=== PATIENT | male | born 1970 | race Hispanic/Latino ===

== ENCOUNTER 2021-04-05 05:50 | Emergency (ER) | payer OTHER ==
[~2021-04-05] VITALS: Ht 167.6 cm; Wt 81.6 kg
[2021-04-05] MEDS ORDERED: CEPHALEXIN 500 MG CAPSULE PO ONE (06:30)
[2021-04-05] MEDS ORDERED: LIDOCAINE HCL 1% 20 ML VIAL INJ ONE (06:30)
[2021-04-05 06:55] LABS: BASOPHILS % (AUTO) 0.3 % (0.0-5.0); EOSINOPHILS % (AUTO) 0.6 % (0.0-8.0); HEMATOCRIT 39.7 % (42-54); LYMPHOCYTES % (AUTO) 13.1 % (21.0-51.0); MEAN CORPUSCULAR HEMOGLOBIN 32.1 pg (27.0-33.0); MEAN CORPUSCULAR HGB CONC 33.5 g/dL (32.0-36.0); MEAN CORPUSCULAR VOLUME 95.9 fL (79-99); MONOCYTES % (AUTO) 7.1 % (3.0-13.0); NEUTROPHILS % (AUTO) 78.2 % (40.0-77.0); PLATELET COUNT (AUTO) 339 K/uL (130-400); RED BLOOD CELL COUNT(AUTO) 4.14 MIL/uL (4.50-6.20); WHITE BLOOD COUNT (AUTO) 10.1 K/uL (4.8-10.8)
[2021-04-05] MEDS ORDERED: TETANUS/DIPHTHERIA TOXOID [ADULT] 0.5 ML VIAL IM SCH (07:00)
[2021-04-05 07:07] LABS: CARBON DIOXIDE 25 mmol/L (21-32); CHLORIDE 101 mmol/L (101-111); GLOMERULAR FILTR. RATE CALC 85 mL/min (>60); GLUCOSE,RANDOM 96 mg/dL (70-105); SODIUM SERUM 139 mmol/L (136-145); UREA NITROGEN, BLOOD 18 mg/dL (7-18)
[2021-04-05 07:09] LABS: ALANINE AMINOTRANSFERASE 37 U/L (12-78); ALBUMIN 4.4 g/dL (3.5-5.0); ALCOHOL, BLOOD < 3 mg/dL (0-10); ASPARTATE AMINOTRANSFERASE 26 U/L (10-37); BILIRUBIN,TOTAL 0.4 mg/dL (0.2-1.0); LIPASE 53 U/L (114-286); TOTAL PROTEIN, SERUM 8.4 g/dL (6.0-8.3)
[2021-04-05] MEDS ORDERED: BENZOCAINE 20% 57 GM SPRAY TP SCH (08:30)
[2021-04-05] MEDS ORDERED: ACET1TAB25 PO (09:22)
[2021-04-05] MEDS ORDERED: HYDROCODONE/ACETAMINOPHEN 10/325 MG TAB PO SCH ×2 (09:30)
[2021-04-05 09:44] LABS: APPEARANCE,URINE Clear (CLEAR); BILIRUBIN,URINE Negative (NEGATIVE); COLOR,URINE Yellow (YELLOW); GLUCOSE, URINE (UA) Negative (NEGATIVE); KETONES,URINE 15 mg/dL (NEGATIVE); LEUKOCYTE ESTERASE ,URINE Negative (NEGATIVE); NITRATE,URINE Negative (NEGATIVE); OCCULT BLOOD,URINE Small (NEGATIVE); PROTEIN,URINE Negative (NEGATIVE); UROBILINOGEN,URINE 0.2 mg/dL (0.2-1.0)
[2021-04-05 09:52] LABS: AMPHET/METH SCREEN,URINE POSITIVE (NEGATIVE); BARBITURATE SCREEN, URINE NEGATIVE (NEGATIVE); BENZODIAZEPINES SCREEN,URINE POSITIVE (NEGATIVE); CANNABINOID SCREEN,URINE NEGATIVE (NEGATIVE); COCAINE SCREEN,URINE POSITIVE (NEGATIVE); OPIATE SCREEN,URINE NEGATIVE (NEGATIVE); PHENCYCLIDINE SCREEN,URINE NEGATIVE (NEGATIVE)
[2021-04-05 10:03] VITALS: BP 152/96
[2021-04-05 10:09] LABS: BACTERIA,URINE Rare /HPF (None Seen); RBC,URINE 0-1 /HPF (0-1); SQUAMOUS EPITHELIAL CELL,UR Few /HPF (0-2); WBC,URINE 0-1 /HPF (0-1)
== END 2021-04-05 10:10 | disposition home or self-care (01) ==
LOC: EDH 05:50
DX: S02.2XXA Fracture of nasal bones, initial encounter for closed fracture (principal); S01.111A Laceration without foreign body of right eyelid and periocular area, initial encounter; S01.01XA Laceration without foreign body of scalp, initial encounter; S80.12XA Contusion of left lower leg, initial encounter; S80.11XA Contusion of right lower leg, initial encounter; S50.11XA Contusion of right forearm, initial encounter; I10 Essential (primary) hypertension; Z88.6 Allergy status to analgesic agent; Y08.89XA Assault by other specified means, initial encounter; Y93.89 Activity, other specified; Y92.89 Other specified places as the place of occurrence of the external cause; Y99.8 Other external cause status
CPT/HCPCS: 12001; 12011; 36415; 70450; 70486; 71250; 72125; 73090; 73130; 73590; 74176; 80053; 80305; 81001; 83690; 84484; 85025; 90471; 90714

== ENCOUNTER 2021-05-30 03:42 | Emergency (ER) | payer OTHER ==
[~2021-05-30] VITALS: Ht 170.2 cm; Wt 77.1 kg
[~2021-05-30 03:42] MED LIST: ACET1TAB25 PO
[2021-05-30] MEDS ORDERED: MORPHINE 4 MG SYG ONE (04:50)
[2021-05-30] MEDS ORDERED: ONDANSETRON 4MG INJ ONE (04:52)
[2021-05-30] MEDS ORDERED: MORPHINE 4 MG SYG IV ONE (05:00)
[2021-05-30] MEDS ORDERED: ONDANSETRON 4MG INJ IVP ONE (05:00)
[2021-05-30] MEDS ORDERED: TRAM50TA4 PO (05:04)
[2021-05-30 05:16] VITALS: BP 109/68
== END 2021-05-30 05:20 | disposition home or self-care (01) ==
LOC: EDH 03:42
DX: S93.492A Sprain of other ligament of left ankle, initial encounter (principal); S30.0XXA Contusion of lower back and pelvis, initial encounter; I10 Essential (primary) hypertension; Z88.6 Allergy status to analgesic agent; Z79.899 Other long term (current) drug therapy; X50.1XXA Overexertion from prolonged static or awkward postures, initial encounter; Y93.01 Activity, walking, marching and hiking; Y92.89 Other specified places as the place of occurrence of the external cause; Y99.8 Other external cause status
CPT/HCPCS: 72100; 73610; 96374; 96375; 99284; J2270; J2405

== ENCOUNTER 2021-06-06 04:40 | Emergency (ER) | payer SELFPAY ==
[~2021-06-06 04:40] MED LIST changes: +TRAM50TA4 PO
[2021-06-06 07:23] VITALS: BP 111/80
== END 2021-06-06 08:34 | disposition home or self-care (01) ==
LOC: EDH 04:40
DX: S93.402A Sprain of unspecified ligament of left ankle, initial encounter (principal); I10 Essential (primary) hypertension; Z88.6 Allergy status to analgesic agent; X50.1XXA Overexertion from prolonged static or awkward postures, initial encounter; Y93.89 Activity, other specified; Y92.89 Other specified places as the place of occurrence of the external cause; Y99.8 Other external cause status
CPT/HCPCS: 73610

== ENCOUNTER 2022-11-10 04:03 | Emergency (ER) | payer OTHER ==
[~2022-11-10 04:03] MED LIST changes: +ACET-2079 PO; -ACET1TAB25 PO
[2022-11-10 04:09] VITALS: BP 178/94; PULSE 72; RESP 20; O2SAT 98
== END 2022-11-10 04:37 | disposition home or self-care (01) ==
LOC: EDH 04:03
DX: G89.29 Other chronic pain (principal); M79.10 Myalgia, unspecified site; I10 Essential (primary) hypertension; Z88.6 Allergy status to analgesic agent

== ENCOUNTER 2022-12-06 17:03 | Emergency (ER) | payer OTHER ==
[~2022-12-06] VITALS: Ht 167.6 cm; Wt 72.6 kg
[2022-12-06 17:08] VITALS: BP 145/78; PULSE 78; RESP 18
[2022-12-07] MEDS ORDERED: IBUP-2070 PO (19:49)
== END 2022-12-06 17:59 | disposition left against medical advice (07) ==
LOC: EDH 17:03
DX: S00.11XA Contusion of right eyelid and periocular area, initial encounter (principal); Z79.899 Other long term (current) drug therapy; Z98.890 Other specified postprocedural states; Z88.6 Allergy status to analgesic agent; Y08.89XA Assault by other specified means, initial encounter; Y93.89 Activity, other specified; Y92.89 Other specified places as the place of occurrence of the external cause; Y99.8 Other external cause status

== ENCOUNTER 2022-12-07 15:39 | Emergency (ER) | payer OTHER ==
[~2022-12-07] VITALS: Ht 167.6 cm; Wt 79.4 kg
[2022-12-07 19:44] VITALS: BP 157/88; PULSE 85; RESP 17; O2SAT 98
[2022-12-07] MEDS ORDERED: IBUP-2070 PO (19:49)
[2022-12-07] MEDS ORDERED: PHARMACY COMMUNICATION MISC SCH (19:52)
[2022-12-07] MEDS ORDERED: IBUPROFEN 600 MG TABLET ONE (19:53)
[2022-12-07] MEDS ORDERED: IBUPROFEN 600 MG TABLET PO ONE (20:00)
[2022-12-07] MEDS ORDERED: HYDROCODONE/ACETAMINOPHEN 5/325 MG TAB PO ONE (20:00)
== END 2022-12-07 20:07 ==
LOC: EDH 15:39 → EEVIPCON 15:39 → EDH 20:07
DX: S02.2XXA Fracture of nasal bones, initial encounter for closed fracture (principal); S20.211A Contusion of right front wall of thorax, initial encounter; S09.8XXA Other specified injuries of head, initial encounter; Z79.899 Other long term (current) drug therapy; Z98.890 Other specified postprocedural states; Z88.6 Allergy status to analgesic agent; Y08.89XA Assault by other specified means, initial encounter; Y93.89 Activity, other specified; Y92.89 Other specified places as the place of occurrence of the external cause; Y99.8 Other external cause status
CPT/HCPCS: 70450; 70486; 71101; 72125